=== PATIENT | female | born 1940 | race Caucasian/White ===

== ENCOUNTER 2019-08-27 13:41 | Outpatient (CLI) | payer MEDICARE, OTHER, SELFPAY ==
--- NOTE | ~2019-08-27 | XR_ITS ---
XR hip LT min 2V DATE: 08/27/2019 14:05 INDICATION: Left hip pain. No known injury. TECHNIQUE: AP and lateral views COMPARISON: None FINDINGS: No fracture or dislocation, avascular necrosis or bone destruction. There is enthesopathy o f the greater trochanter of the proximal left femur. No fracture, dislocation, avascular necrosis or bone destruction is detected. Normal alignment at the pubic symphysis and the visualized portions of the sacroiliac joints. IMPRESSION: No fracture or dislocation or bone destruction Reviewed, dictated and finalized at location B.
== END 2019-08-27 13:42 | disposition home or self-care (01) ==
LOC: CHSIMG 13:43
PROVIDERS: PCP Family Medicine; Visit Provider Family Medicine
DX: M25.552 Pain in left hip (principal)
CPT/HCPCS: 73502

== ENCOUNTER 2020-05-19 16:10 | Outpatient (CLI) | payer MEDICARE, OTHER, MEDICAID, SELFPAY ==
--- NOTE | ~2020-05-19 | XR_ITS ---
XR hip RT min 2V DATE: 05/19/2020 16:37 INDICATION: Chronic right hip pain TECHNIQUE: AP and lateral views COMPARISON: 01/26/2019 right hip FINDINGS: There is mild right hip osteoarthritis. No fracture or dislocation, avascular necrosis or bone destruction is evident. IMPRESSION: Mild right hip osteoarthritis; no significant change since 01/26/2019 Reviewed, dictated and finalized at location A. IMPRESSION: Mild right hip osteoarthritis; no significant change since 01/27/20 19
== END 2020-05-19 16:11 | disposition home or self-care (01) ==
LOC: CHSIMG 16:15
PROVIDERS: PCP Family Medicine; Visit Provider Family Medicine
DX: M25.551 Pain in right hip (principal)
CPT/HCPCS: 73502

== ENCOUNTER → 2020-07-28 13:17 | Outpatient (CLI) | payer MEDICARE, OTHER, SELFPAY ==
--- NOTE | ~2020-07-28 | DEXA_ITS ---
Bone Density Report Name: Trina Leiva Age: 79 Sex: Female Ethnicity: White Date of : 1940 Indication: postmenopausal; screening for osteoporosis; height loss; Referring Provider: NEGIN JOE Study: Bone densitometry was performed. Exam Date: July 28, 2020 Accession number: [id number] Bone Density: Region BMD T-score Z-score Classification AP Spine (L3, L4) 1.367 2.4 5.2 Normal Femoral Neck (Left) 0.854 0.0 2.3 Normal Total Hip (Left) 1.005 0.5 2.6 Normal Femoral Neck (Right) 0.824 -0.2 2.1 Normal Total Hip (Right) 0.918 -0.2 1.9 Normal Total Hip Mean 0.962 0.2 2.3 Normal World Health Organization criteria for BMD impression classify patients as: Normal (T-score at or above -1.0), Osteopenia (T-score between -1.0 and -2.5), or Osteoporosis (T-score at or below -2.5). 10-year Fracture Risk: FRAX not reported because: All T-scores for Spine Total, Hip Total, Femoral Neck at or above -1.0 Previous Exams: Region Exam Age BMD T-score BMD Change BMD Change Date g/cm2 vs Baseline vs Previous AP Spine(L3, L4) 07/28/2020 79 1.367 2.4 -0.069* -0.082* 04/15/2016 75 1.448 3.2 0.012 -0.158* 07/10/2013 72 1.607 4.6 0.170* 0.170* 04/08/2008 67 1.436 3.0 Total Hip(Left) 07/28/2020 79 1.005 0.5 0.044* -0.036* 04/15/2016 75 1.041 0.8 0.080* -0.005 07/10/2013 72 1.046 0.9 0.086* 0.086* 04/08/2008 67 0.961 0.2 Total Hip(Right) 07/28/2020 79 0.918 -0.2 -0.014 -0.033* 04/15/2016 75 0.952 0.1 0.019 -0.001 07/10/2013 72 0.953 0.1 0.020 0.020 04/08/2008 67 0.933 -0.1 *Denotes significance at 95% confidence level, LSC for AP Spine = 0.022 g/cm2, LSC for Total Hip = 0.027 g/cm2 Clinical Information Provided by Patient: Has used the following medications: Vitamin D, MTV Patient maximum height was 67 Menopause Age: 50 No regular weight bearing exercise Onset of menses at age 13 Number of children 2 Impression: The patient has normal bone mass. The BMD for the AP Spine(L3, L4) decreased, changing by -0.082 since the last DXA exam. The BMD for the Total Hip(Left) decreased, changing by -0.036 since the last DXA exam. The BMD for the Total Hip(Right) decreased, changing by -0.033 since the last DXA exam. Discussion: LASHELL
--- NOTE | ~2020-07-28 | MM_ITS ---
EXAMINATION: MM screening aayush BI w adam HISTORY: Screening mammogram TECHNIQUE: Craniocaudal and mediolateral oblique 3-D tomosynthesis images were obtained and synthetic 2-D images were generated. CAD analysis was submitted and interpreted. COMPARISON: 05/29/2018, 05/02/2017, 04/15/2016 bilateral digital screening mammogram examinations BREAST PARENCHYMAL COMPOSITION: There are scattered areas of fibroglandular density. FINDINGS: Scattered bilateral benign calcifications. Stable mild fibroglandular asymmetry. There is n o evidence of suspicious mass, calcification, or architectural distortion to suggest malignancy in ei ther breast. There has been no suspicious interval change. IMPRESSION: 1. No mammographic evidence of malignancy. 2. Recommend routine screening mammography in one year. BI-RADS Category 2: Benign finding(s). Reviewed, dictated and finalized at location A.
== END ==
PROVIDERS: PCP Family Medicine; Visit Provider Obstetrics & Gynecology Gynecology
DX: Z12.31 Encounter for screening mammogram for malignant neoplasm of breast (principal); Z78.0 Asymptomatic menopausal state
CPT/HCPCS: 77063; 77067; 77080

== ENCOUNTER → 2020-12-17 16:47 | Outpatient (CLI) | payer MEDICARE, MEDICAID, SELFPAY ==
--- NOTE | ~2020-12-17 | MR_ITS ---
EXAMINATION: MR lumbar spine wo con DATE: 12/17/2020 17:58 INDICATION: Low back pain. Lumbar spondylosis with radiculopathy. TECHNIQUE: Magnetic resonance imaging (MRI) of the lumbar spine was performed without intravenous con trast. Sequences included sagittal T2-weighted FSE, sagittal T2-weighted FS FSE, sagittal STIR FSE, s agittal T1-weighted FSE, and axial T2-weighted FSE. COMPARISON: Lumbar spine MRI 12/13/15 FINDINGS: There is 17 degrees dextroscoliosis of thoracolumbar spine. There is 3 mm retrolisthesis of L1 on L2. There is mild chronic height loss of T11 vertebral body. There are Schmorl's nodes at mult iple levels. There is severely decreased disc height from L1-L2 through L5-S1 with endplate remodelin g. There is interbody fusion at L3-L4. There is ligamentum flavum hypertrophy at the disc levels of l umbar spine. The distal spinal cord signal intensity is normal. The conus medullaris is at L1. The fo llowing disc levels are specifically discussed: L1-L2: The disc is bulging. There is severe bilateral facet joint osteoarthritis. There is mild right and moderate left neural foraminal stenosis. There is mild central canal stenosis. L2-L3: The disc is bulging and has an annular fissure. There is severe bilateral facet joint osteoart hritis. There is moderate bilateral neural foraminal stenosis. There is moderate central canal stenos is. L3-L4: The disc is bulging. There is severe left facet joint osteoarthritis. There is ankylosis of ri ght facet joint with moderate hypertrophy. There is mild bilateral neural foraminal stenosis. There i s mild central canal stenosis. L4-L5: The disc is bulging and has an annular fissure. There is mild bilateral facet joint osteoarthr itis. There is moderate right and mild left neural foraminal stenosis. There is mild central canal st enosis. L5-S1: The disc is bulging and has an annular fissure. There is moderate right and severe left facet joint osteoarthritis. There is moderate bilateral neural foraminal stenosis. There is mild central ca nal stenosis. IMPRESSION: 1. Severe lumbar spondylosis, stable from 12/13/2015. 2. Thoracolumbar dextroscoliosis. Reviewed, dictated and finalized at location A. S REPRESENTATIVE DOOR TO DOOR
== END ==
DX: M47.27 Other spondylosis with radiculopathy, lumbosacral region (principal)
CPT/HCPCS: 72148

== ENCOUNTER 2021-01-28 10:13 | Outpatient (CLI) | payer MEDICARE, MEDICAID, SELFPAY ==
--- NOTE | ~2021-01-28 | US_ITS ---
US abdomen complete EXAMINATION: US Abdomen Complete INDICATION: Elevated bilirubin PROCEDURE: Realtime High Resolution abdomen ultrasound. COMPARISON: No prior studies for comparison FINDINGS: There are gallstones. No gallbladder wall thickening or pericholecystic fluid. Common bile duct measures 2 mm. Liver echotexture is increased, consistent with fatty infiltration. Pancreas within normal limits. Pancreatic tail is obscured by bowel gas. Spleen is unremarkeable. Renal echotexture is within john l limits bilaterally without hydronephrosis, contour deforming mass or renal stone. Right kidney razia ures 9.8 cm. Left kidney measures 9.6 cm. Visualized aspects of the aorta and IVC are within normal limits. Portal vein is patent. No sonograph ic Ramirez's sign indicated by the technologist. IMPRESSION: 1: Cholelithiasis. 2: Hepatic steatosis. Reviewed, dictated and finalized at location A. ING MACHINE ASSEMBLER
== END 2021-01-28 10:14 | disposition home or self-care (01) ==
LOC: CHSIMG 10:14
PROVIDERS: PCP Family Medicine; Visit Provider Family Medicine
DX: R79.9 Abnormal finding of blood chemistry, unspecified (principal)
CPT/HCPCS: 76700

== ENCOUNTER 2021-01-29 09:48 | Outpatient (CLI) | payer MEDICARE, MEDICAID, OTHER, SELFPAY | END 2021-01-29 09:49 | disposition home or self-care (01) | LOC: CHSCARD 09:50 | PROVIDERS: PCP Family Medicine; Visit Provider Family Medicine | DX: R06.00 Dyspnea, unspecified (principal) | CPT/HCPCS: 94060; 94726; 94729 ==

== ENCOUNTER 2021-07-07 16:52 | Outpatient (RCR) | payer MEDICARE, MEDICAID, SELFPAY ==
--- NOTE | 2021-07-07 17:38 | PTOPEVAL ---
Thank you for referring Trina Leiva to [facility].? The patient is scheduled to be seen for therapy? ____x/week for ___ weeks. Please review, sign, date and return this plan of care KAREN. I agree with and certify that the following plan of care is medically necessary. Referring Physician Date Admitting Provider: Attending Provider: Inocente Garza MD Referring Provider: *PT Outpatient Evaluation Start: 07/07/21 16:58 Freq: Status: Active Protocol: Document 07/07/21 17:00 [facility] (Rec: 07/07/21 17:38 [facility] [id number]) Therapy Assessment Status Assessment Status Assessment Status Evaluation Outpatient Past Medical History Neurological History Hx Neurological Disorders No Significant History Cardiovascular History Hx Hypertension Yes Respiratory History Hx Respiratory Disorders No Significant History Gastrointestinal History Hx Gastrointestinal Disorders No Significant History Genitourinary History Hx Other Genitourinary Disorders Yes: incontinence Musculoskeletal History Hx Arthritis Yes Hx Back Pain Yes Hx Joint Replacement Yes: Left TKR 2009, Right TKR 2014 Hematological History Hx Hematological Disorders No Significant History Endocrine History Hx Endocrine Disorders No Significant History HEENT History Hx Cataracts Yes Integumentary History Hx Skin Disorders No Significant History Reproductive History Hx Other Reproductive Disorders Yes: D&C Psychosocial History Hx Anxiety Yes Pain History History of Any Previous or Ongoing No Significant History Instance of Pain Anesthesia History Hx Anesthesia Reactions No Significant History Evaluation Information Problem Diagnosis unsteady gait, lower back pain Subjective Information patient reports she is coming Query Text:As Reported By Patient/ to therapy for her balance and Family her back pain. she reports this year she has noticed deficits in her balance. she reports she has a cane at home , but her daughter tells her she is not using it correctly. she reports she has had lower back pain off and on for years, but currently it has been stuck painful and not relenting. she reports she is getting more hot when doing activities as she believes she has to work harder all the t
--- NOTE | 2021-10-05 16:49 | PCPTNOTE ---
Mrs. Leiva attended a total of 3 treatment sessions from 07/07/21 to 07/17/21. She has failed to return to the clinic and will be discharged from our care. Refer to last daily note for discharge status.
== END 2021-07-17 23:59 | disposition home or self-care (01) ==
LOC: CHSPT 16:52
PROVIDERS: PCP Family Medicine; Visit Provider Family Medicine
DX: R26.81 Unsteadiness on feet (principal)
CPT/HCPCS: 97110; 97161; 97530

== ENCOUNTER 2021-07-27 15:50 | Outpatient (CLI) | payer MEDICARE, OTHER, MEDICAID, SELFPAY ==
--- NOTE | ~2021-07-27 | XR_ITS ---
EXAMINATION: XR chest 2V DATE: 07/27/2021 16:05 INDICATION: Acute cough. Shortness of breath. TECHNIQUE: Frontal and lateral views of the chest were obtained. COMPARISON: CT abdomen and pelvis 03/09/2017 FINDINGS: The chest demonstrates clear lungs without pneumonia, pleural effusion, or pneumothorax. Th e heart size is normal. IMPRESSION: 1. No acute cardiopulmonary disease. Reviewed, dictated and finalized at location A.
== END 2021-07-27 15:51 | disposition home or self-care (01) ==
LOC: CHSIMG 15:53
PROVIDERS: PCP Family Medicine; Visit Provider Family Medicine
DX: R05.1 Acute cough (principal)
CPT/HCPCS: 71046

== ENCOUNTER 2021-10-14 11:06 | Day surgery (SDC) | payer MEDICARE, OTHER, MEDICAID, SELFPAY ==
[2021-09-30 09:53] VITALS: BMI 44.4
--- NOTE | 2021-10-14 11:27 | WPDHPUPDATE1 ---
History and Physical Update Update Date/Time: 10/14/21 11:27 History and Physical has been reviewed, including an updated exam of the patient. There are NO changes in the patient's condition. Risks, benefits, and alternatives have been discussed and questions answered. Patient agrees to proceed with procedure.
[2021-10-14] MEDS: OFLOXACIN 0.3% OPHTH SOLN 5 ML BTL 1 DROP AFFCTD EYE (11:35)
[2021-10-14] MEDS: TETRACAINE HCL 0.5% OPHTH SOLN 4 ML BTL 1 DROP AFFCTD EYE ×3 (11:35→11:45)
--- NOTE | 2021-10-14 11:35 | WPDANESEPPF ---
Anes - Initial Pre Proc Eval Procedure: Operation Date: 10/14/21 12:00 Proposed Procedures p Cataract Extraction with Lens Implant-Right Eye - Jose El MD Date/Time: 10/14/21 11:35 Surgeon: Jose El MD Pre Op Diagnosis: Cataract Right Eye Patient Data Age: 81 Gender: F Height: 1.65 m Weight: 121 kg Allergies Allergy/AdvReac Type Severity Reaction Status Date / Time No Known Allergies Allergy Verified 07/24/21 11:28 Home Medications Medication Instructions Recorded Confirmed Type atorvastatin 40 mg tablet 40 mg PO HS 09/05/20 09/30/21 History biotin 10,000 mcg capsule 10,000 mcg PO DAILY 09/05/20 09/30/21 History cholecalciferol (vitamin D3) 50 100 mcg PO DAILY 09/05/20 09/30/21 History mcg (2,000 unit) capsule cranberry concentrate-ascorbic 1 cap PO DAILY 09/05/20 09/30/21 History acid 4,200 mg-20 mg capsule desloratadine 5 mg tablet 5 mg PO DAILY 09/05/20 09/30/21 History doxazosin 4 mg tablet 8 mg PO BID 09/05/20 09/30/21 History escitalopram oxalate 20 mg tablet 20 mg PO DAILY 09/05/20 09/30/21 History hydrochlorothiazide 12.5 mg capsule 12.5 mg PO DAILY 09/05/20 09/30/21 History lisinopril 40 mg tablet 40 mg PO DAILY 09/05/20 09/30/21 History metoprolol succinate 100 mg 100 mg PO DAILY 09/05/20 09/30/21 History tablet,extended release 24 hr mirabegron 25 mg tablet,extended 25 mg PO HS 09/05/20 09/30/21 History release 24 hr (Myrbetriq) montelukast 10 mg tablet 10 mg PO DAILY 09/05/20 09/30/21 History vit C,E,zinc,copper-uiual5h 250 1 cap PO DAILY 09/05/20 09/30/21 History mg-lutein 5 mg-zeaxanthin 1 mg capsule (Ocuvite Adult 50 Plus) Patient hx anesthesia problems: none Family hx anesthesia problems: none Results Review: All pre-operative results and documents have been reviewed as part of the pre-operative evaluation. [facility] Past Medical History Medical History Anxiety Elevated bilirubin Hepatic steatosis HLD (hyperlipidemia) HTN (hypertension) Obese Osteoarthritis Surgical History Surgical History History of total bilateral knee replacement Family History Family History Other Family history of arthritis Family history of coronary artery disease Hypertension Social History Social History Smoking status: Never smoker Second hand tobacco smoke exposure: No Alcohol intake: never Substance use: never Living arrangements: alone Spiritual care concerns: No Anes - Eval Final PreProcedure Day of Procedure 10/14/21 11:35 Patient weight: morbidly obese Heart: regular rate and rhythm Lungs: clear to auscultation Airway: Mallampati scale class II Neurological: alert and oriented Last oral intake: >/= 8 hours ASA classification: III Emergent: no Anesthetic plan: proceed Anesthesia type and monitoring: monitored anesthesia care Results Review: All pre-operative results and documents have been reviewed as part of the pre-operative evaluation. Informed Consent: The patient's anesthetic plan and its attendant risks and benefits were discussed with the patient/family/POA. Questions were solicited and answers provided to the satisfaction of the patient/family/POA.
[2021-10-14 11:42] VITALS: BMI 44.2
[2021-10-14 11:44] VITALS: BP 195/85; PULSE 79; RESP 18; TEMP 36.6; O2SAT 97
[2021-10-14] MEDS: LIDOCAINE HCL 2% JELLY 5 ML TUBE 1 APPLIC AFFCTD EYE (12:29)
[2021-10-14] MEDS: LIDOCAINE HCL 1% PF INJ 5 ML VIAL 1 ML INTRAOCULA (12:50)
--- NOTE | 2021-10-14 12:57 | W.PM.PROC2 ---
Procedure Note - Detailed Date of Procedure 10/14/21 Pre-op Diagnosis Cataract Right Eye Post-op Diagnosis Same Procedure Performed Cataract Extraction (by Phacoemulsification) and lntraocular Lens Implant RIGHT eye Surgeon Jose El MD Description of Procedure The eye was anesthetized with topical 0.75% bupivacaine. After intravenous sedation and placement of monitors, the patient was prepped and draped in the usual sterile manner. A lid speculum was placed. A paracentesis was made, and preservative free 1% lidocaine was instilled in the anterior chamber. The anterior chamber was then filled with Viscoat viscoelastic. A meena keratome was used to create the wound. Continuous tear anterior capsulotomy was performed. The lens was hydro dissected before being removed with phacoemulsification. The remaining lenticular cortex was removed with aspiration. The capsular bag was polished and filled with viscoelastic material. An intraocular lens was chosen, inspected, irrigated and placed within the capsular bag where it was seen to be centered and stable. The viscoelastic material was aspirated. The wound was closed and found to be watertight. Ciloxan drops were placed in the eye. The speculum was removed. A Josue shield was applied. The patient tolerated the procedure well and left the operating room in satisfactory condition. Implants See chart Complications None Condition Stable Disposition Same day
[2021-10-14] MEDS: HOME MEDICATION 1 EACH AFFCTD EYE (13:15)
[2021-10-14] MEDS: NEOMYCIN/POLYMYXIN/DEXAMETH OP OINT 3.5 GM TUBE 1 APPLIC AFFCTD EYE (13:15)
[2021-10-14 13:20] VITALS: BP 187/81; PULSE 68; RESP 16; O2SAT 96
[2021-10-14] MEDS: acetaZOLAMIDE TAB 250 MG TABLET PO (13:27)
--- NOTE | 2021-10-14 13:42 | WPDANESPN ---
Anes - Prog Note Post-Op Date/Time: 10/14/21 13:42 Cardiovascular status: normal Respiratory status: normal Airway patency: baseline Mental status: baseline Post-Op hydration status: normal Vital Signs: Last Vital Signs Temp 36.6 C 10/14/21 11:44 Pulse 68 10/14/21 13:20 Resp 16 10/14/21 13:20 BP 187/81 H 10/14/21 13:20 Pulse Ox 96 10/14/21 13:20 O2 Del Method Room Air 10/14/21 13:20 Pain Score (VAS): 0 Patient Feedback: Patient satisfied with anesthetic care.
== END 2021-10-14 13:45 | disposition home or self-care (01) ==
PROVIDERS: Visit Provider Student in an Organized Health Care Education/Training Program
PROC: (CPT 66983; principal; 2021-10-14 12:00)
DX: H25.11 Age-related nuclear cataract, right eye (principal)
CPT/HCPCS: 66984

== ENCOUNTER → 2021-11-27 13:28 | Outpatient (CLI) | payer MEDICARE, OTHER, MEDICAID, SELFPAY ==
--- NOTE | ~2021-11-27 | MM_ITS ---
EXAMINATION: MM screening aayush BI w adam HISTORY: Screening TECHNIQUE: Craniocaudal and mediolateral oblique 3-D tomosynthesis images were obtained and synthetic 2-D images were generated. CAD analysis was submitted and interpreted. COMPARISON: Comparison to multiple prior studies sequentially, with oldest reviewed study dated 03/28. BREAST PARENCHYMAL COMPOSITION: There are scattered areas of fibroglandular density. FINDINGS: Bilateral breast asymmetries are stable. There is no evidence of suspicious mass, calcifica tion, or architectural distortion to suggest malignancy in either breast. There has been no suspiciou s interval change. IMPRESSION: 1. No mammographic evidence of malignancy. 2. Recommend routine screening mammography in one year. BI-RADS Category 1: Negative Reviewed, dictated and finalized at location A.
== END ==
PROVIDERS: PCP Family Medicine; Visit Provider Obstetrics & Gynecology Gynecology
DX: Z12.31 Encounter for screening mammogram for malignant neoplasm of breast (principal)
CPT/HCPCS: 77063; 77067

== ENCOUNTER 2022-07-30 14:26 | Outpatient (CLI) | payer MEDICARE, OTHER, MEDICAID, SELFPAY ==
--- NOTE | ~2022-07-30 | XR_ITS ---
EXAM: XR lumbar spine 2-3V DATE: 07/30/2022 14:43 HISTORY: spinal stenosis, lumbar region with neurogenic claudication . COMPARISON: 12/08/2015. FINDINGS: Osteopenia. Aortic calcifications without evident aneurysm. Moderate lumbar scoliosis. 5 n onrib-bearing lumbar-type vertebral bodies. Pedicles intact. Straightening of the lumbar lordosis. Ve rtebral body heights preserved. Multilevel disc space narrowing and marginal osteophytosis, with larg e bridging osteophytes at multiple levels. Vacuum disc phenomenon at L1-2 and L2-3. Moderate-severe f acet hypertrophy and sclerosis. Interbody fusion at L3-4 and L4-5. No fracture or dislocation. IMPRESSION: Multilevel severe degenerative disc disease. Multilevel severe facet arthropathy. Reviewed, dictated and finalized at location K. IMPRESSION: Multilevel severe degenerative disc disease. Multilevel severe face t arthropathy.
== END 2022-07-30 14:27 | disposition home or self-care (01) ==
LOC: CHSLAB 14:30
PROVIDERS: PCP Family Medicine; Visit Provider Family Medicine
DX: M48.062 Spinal stenosis, lumbar region with neurogenic claudication (principal); M51.36 Other intervertebral disc degeneration, lumbar region
CPT/HCPCS: 72100

== ENCOUNTER → 2022-08-23 12:43 | Outpatient (CLI) | payer MEDICARE, OTHER, MEDICAID, SELFPAY ==
--- NOTE | ~2022-08-23 | MR_ITS ---
EXAMINATION: MR lumbar spine wo con DATE: 08/23/2022 13:27 INDICATION: Spinal stenosis. Low back pain. TECHNIQUE: Magnetic resonance imaging (MRI) of the lumbar spine was performed without intravenous con trast. Sequences included sagittal T2-weighted FSE, sagittal T2-weighted FS FSE, sagittal T1-weighted FSE, and axial T2-weighted FSE. COMPARISON: Lumbar spine MRI 12/17/2020, radiographs 07/30/2022 FINDINGS: There is 14 degrees dextroscoliosis of thoracolumbar spine. There is 3 mm retrolisthesis of L1 on L2. Vertebral body heights are normal. There is severely decreased disc height from L1-L2 thro ugh L5-S1 with interbody fusion at L3-L4. The distal spinal cord signal intensity is normal. The conu s medullaris is at L1. The following disc levels are specifically discussed: L1-L2: The disc is bulging. There is severe bilateral facet joint osteoarthritis. There is mild right and moderate left neural foraminal stenosis. There is mild central canal stenosis. L2-L3: The disc is bulging with superimposed right subarticular zone extrusion. There is severe bilat eral facet joint osteoarthritis. There is mild right and moderate left neural foraminal stenosis. The re is mild central canal stenosis. There is severe stenosis of right lateral recess. L3-L4: The disc is bulging. There is severe left facet joint osteoarthritis. There is ankylosis of ri ght facet joint with moderate hypertrophy. There is mild bilateral neural foraminal stenosis. There i s mild central canal stenosis. L4-L5: The disc is bulging and has an annular fissure. There is severe bilateral facet joint osteoart hritis. There is mild bilateral neural foraminal stenosis. There is mild central canal stenosis. L5-S1: The disc is bulging with superimposed right foraminal zone extrusion. There is moderate right and severe left facet joint osteoarthritis. There is moderate right and mild left neural foraminal st enosis. There is mild central canal stenosis. IMPRESSION: 1. Severe lumbar spondylosis, stable from 12/17/2020. 2. Thoracolumbar dextroscoliosis. Reviewed, dictated and finalized at location A.
== END ==
PROVIDERS: PCP Family Medicine; Visit Provider Family Medicine
DX: M48.00 Spinal stenosis, site unspecified (principal); M47.896 Other spondylosis, lumbar region
CPT/HCPCS: 72148

== ENCOUNTER 2022-11-08 14:26 | Outpatient (CLI) | payer MEDICARE, OTHER, MEDICAID, SELFPAY ==
--- NOTE | ~2022-11-08 | XR_ITS ---
XR shoulder RT min 2V DATE: 11/08/2022 15:01 INDICATION: Generalized right shoulder pain. Fall one month ago. TECHNIQUE: 4 views of right shoulder COMPARISON: March 19, 2013 right shoulder FINDINGS: There is diffuse osteopenia. Cervical spondylosis. Thoracic scoliosis and degenerative spurring. There is joint space narrowing and spurring at the glenohumeral joint consistent with prominent gleno humeral osteoarthritis. There is degenerative spurring at the acromioclavicular joint. The discs diminished space between the humeral head and undersurface of the acromion process cyst wit h rotator cuff tear and/or atrophy. No fracture or dislocation, periosteal reaction or bone destruction is detected. IMPRESSION: Severe glenohumeral osteoarthritis Degenerative spurring at the right acromioclavicular joint Rotator cuff tear and/or atrophy Osteopenia Cervical spondylosis. Thoracic scoliosis and degenerative spurring Reviewed, dictated and finalized at location B.
== END 2022-11-08 14:27 | disposition home or self-care (01) ==
LOC: CHSIMG 14:29
PROVIDERS: PCP Family Medicine; Visit Provider Family Medicine
DX: M25.511 Pain in right shoulder (principal); M19.011 Primary osteoarthritis, right shoulder; M77.8 Other enthesopathies, not elsewhere classified; M85.89 Other specified disorders of bone density and structure, multiple sites; M43.02 Spondylolysis, cervical region; M41.84 Other forms of scoliosis, thoracic region
CPT/HCPCS: 73030

== ENCOUNTER 2022-12-01 18:28 | Outpatient (RCR) | payer MEDICARE, OTHER, MEDICAID, SELFPAY ==
--- NOTE | 2022-12-01 14:09 | OPREHPOC ---
Outpatient Therapy Plan of Care This is a Multidisciplinary Plan of Care that may contain components documented by all disciplines (PT, OT, and ST.) PT Problem 1 PT Problem #1 Knowledge Deficit PT Goal 1 Goal 1. independent and compliant with HEP Target Visit 4 PT Problem 2 PT Problem #2 Impaired Range of Motion PT Goal 1 Goal 1. improve active R shoulder flexion to 145 degrees or better 2. improve active R shoulder abduction to 120 degrees or better Target Visit 9 PT Problem 3 PT Problem #3 Pain PT Goal 1 Goal 1. decrease pain at worst to 3/10 or less in the R shoulder Target Visit 9 PT Problem 4 PT Problem #4 Impaired Strength PT Goal 1 Goal 1. improve R shoulder strength to 4/5 or better overall Target Visit 9 PT Problem 5 PT Problem #5 Impaired Functional Mobil PT Goal 1 Goal 1. improve R shoulder functional reach to the bra line behind back 2. improve R shoulder functional reach to the shirt collar behind head 3. patient to lift 10lbs from waist to shoulder level shelf Target Visit 9
--- NOTE | 2022-12-01 14:09 | PTOPEVAL1 ---
Assessment and note entered by JT File, PT Evaluation Information Assessment Status Evaluation Diagnosis R shoulder pain Onset 11/19/22 Subjective Information patient reports she fell at home and injured the R shoulder. she reports she had xrays of the shoulder with no fractures found. she reports it began hurting again a few weeks ago. she reports she has not had an MRI. she reports she has increased pain in the R shoulder with pulling/ pushing use of the R arm. she reports the pain subsides with rest. she reports she has difficulty lifting/raising the arm to her side. she reports she has difficulty writing with the R hand. she reports she sleeps fine. Reported Pain Level Pain Score 2: Self Report Assessment PT Clinical Summary mrs. pinon is an 82 yo woman who presents to skilled PT services for evaluation and treatment of R shoulder pain. she presents today with R shoulder weakness, decreased rom, and pain indicative of a R RTC pathology. she more than likely has a partial tear or RTC tendonitis. she would benefit from continued skilled PT to address her objective/functional deficits and return to her prior level functional activity performance/ quality of life. Plan of Care Interventions Electrical Stimulation,Hot Pack/Cold Pack,Manual Therapy,Neuro Re-education,Patient/Caregiver Educati,Therapeutic Activities,Therapeutic Exercise PT Services Indicated Yes Treatment Frequency and 3x weekly for 9 visits Duration These treatments will address the objective and functional deficits as defined above. The patient will be advanced safely and appropriately in order for the patient to progress towards his/her prior level of function. Additional exercises will be introduced and as well as a comprehensive home exercise program upon discharge, if needed, ?to ensure carryover of functional gains achieved in the clinic. This treatment plan has been reviewed and agreement upon by the patient.
== END 2022-12-20 16:42 | disposition home or self-care (01) ==
LOC: CHSPT 18:28
PROVIDERS: PCP Family Medicine; Visit Provider Family Medicine
DX: M25.511 Pain in right shoulder (principal)
CPT/HCPCS: 97014; 97110; 97161; G0283

== ENCOUNTER 2023-10-24 14:33 | Outpatient (CLI) | payer MEDICARE, OTHER, SELFPAY ==
--- NOTE | 2023-10-24 14:38 | ECG_ITS ---
Test Date: 2023-10-24 14:50:07 Measurements Intervals [place] Rate: 53 P: 69 [place]: 181 QRS: -37 QRSD: 161 T: 111 QT: 495 QTc: 468 Interpretive Statements SINUS BRADYCARDIA WITH OCCASIONAL SUPRAVENTRICULAR PREMATURE COMPLEXES LEFT AXIS DEVIATION LEFT BUNDLE BRANCH BLOCK BASELINE WANDER- I, II, III, V1-V3 ABNORMAL ECG No previous ECG available for comparison Electronically Signed On 10-24-2023 14:56:26 CDT by Darrin Rose D.O.
== END 2023-10-24 14:34 | disposition home or self-care (01) ==
PROVIDERS: PCP Family Medicine; Visit Provider Internal Medicine Cardiovascular Disease
DX: I44.7 Left bundle-branch block, unspecified (principal); R00.1 Bradycardia, unspecified; R94.31 Abnormal electrocardiogram [ECG] [EKG]
CPT/HCPCS: 93005

== ENCOUNTER 2023-10-31 08:14 | Outpatient (CLI) | payer MEDICARE, OTHER, MEDICAID, SELFPAY ==
--- NOTE | 2023-10-31 08:22 | EST_ITS ---
Patient Info Name: Trina Leiva Age: 83 years : 1940 Gender: Female Ht: 65 in Wt: 270 lbs BSA: 2.44 m2 HR: 54 bpm BP: 135 / 48 mmHg Heart Rhythm: Left Bundle Branch Block, Sinus Arrhythmia, Bradycardia Technical Quality: Good Exam Date: 10/31/2023 9:30 AM Exam Location: Echo Lab Patient Status: Outpatient Admit Date: 10/31/2023 Staff Ordering Physician: Darrin Rose DO Attending Provider: Darrin Rose DO Exam Type: CA stress carmella w NM Study Info A regadenoson stress test was performed. History/Risk Factors Hypertension: Yes Dyslipidemia: Yes Obesity: Yes Summary 1. 1. Inconclusive lexiscan stress test for ischemic ST changes by ECG criteria due to baseline LBBB. 2. 2. Hypertensive response to lexiscan. 3. 3. Nuclear scan to follow and will be reported separately. Please correlate with it. Protocol: LEXISCAN Stress ECG Details Stage: REST Duration (min): 1 min : 50 sec HR (bpm): 52 SBP (mmHg): 135 DBP (mmHg): 48 Stage: REST Duration (min): 12 min : 48 sec HR (bpm): 48 SBP (mmHg): 135 DBP (mmHg): 48 Stage: STAGE 1 Duration (min): 0 min : 55 sec HR (bpm): 55 SBP (mmHg): 135 DBP (mmHg): 48 Stage: RECOVERY Duration (min): 0 min : 4 sec HR (bpm): 56 SBP (mmHg): 135 DBP (mmHg): 48 Stage: RECOVERY Duration (min): 1 min : 4 sec HR (bpm): 64 SBP (mmHg): 135 DBP (mmHg): 48 Stage: RECOVERY Duration (min): 2 min : 4 sec HR (bpm): 63 SBP (mmHg): 217 DBP (mmHg): 54 Stage: RECOVERY Duration (min): 3 min : 4 sec HR (bpm): 61 SBP (mmHg): 217 DBP (mmHg): 54 Stage: RECOVERY Duration (min): 4 min : 4 sec HR (bpm): 63 SBP (mmHg): 120 DBP (mmHg): 57 Stage: RECOVERY Duration (min): 5 min : 4 sec HR (bpm): 61 SBP (mmHg): 120 DBP (mmHg): 57 Stage: RECOVERY Duration (min): 5 min : 23 sec HR (bpm): 63 SBP (mmHg): 120 DBP (mmHg): 57 Rest HR: 48 bpm Peak HR: 65 bpm Rest Sys BP: 135 mmHg Peak Sys BP: 217 mmHg Max Pred HR: 137 bpm % Max Pred HR: 47 % Target HR: 116 bpm Max RPP: 14,105 bpm*mmHg Termination Reason: Completed Protocol Cardiac Symptoms: None Total Time: 0 min : 55 sec Rest Thompson BP: 48 mmHg Peak Thompson BP: 54 mmHg Total Dose: 0.4 mg Resting ECG Sinus bradycardia with sinus arrhythmia and LBBB. Stress ECG No abnormal ST/T wave changes. Arrhythmias None. Report Signatures
--- NOTE | 2023-10-31 14:07 | WPDCARIOSTRE ---
Nuclear Stress Test INDICATIONS Indications: DIAZ PROCEDURE Procedure Performed: Myocardial Perf Spect-Multi Procedure: Patient underwent a lexiscan stress test and immediately was injected with 33.9 mCi of cardiolyte. Multiple tomographic images were obtained. These are of good quality. There is evidence of a moderate size, moderate severity anteroseptal perfusion defect with stress imaging. A separate resting images were obtained after patient was injected with 10.8 mCi of cardiolyte. Multiple tomographic images were obtained. These are of good quality. There is evidence of a moderate size, moderate severity anteroseptal perfusion defect with rest imaging. CONCLUSION Conclusion: 1. Myocardial perfusion imaging demonstrating a fixed moderate size anteroseptal perfusion defect suggestive of breast attenuation artifact. 2. No evidence of reversible ischemia. 3. Left ventriculogram demonstrates normal measured ejection fraction of 63% with no wall motion abnormalities. 4. TID score 1.0 is normal.
== END 2023-10-31 08:15 | disposition home or self-care (01) ==
LOC: CHSIMG 08:17
PROVIDERS: PCP Family Medicine; Visit Provider Internal Medicine Cardiovascular Disease
DX: R06.09 Other forms of dyspnea (principal)
CPT/HCPCS: 78452; 93017; A9502; J2785

== ENCOUNTER 2024-05-22 13:38 | Outpatient (CLI) | payer MEDICARE, OTHER, MEDICAID, SELFPAY ==
--- NOTE | 2024-05-22 13:48 | ECHO_ITS ---
Patient Info Name: Trina Leiva Age: 83 years : 1940 Gender: Female Ht: 65 in Wt: 270 lbs BSA: 2.44 m2 HR: 57 bpm BP: 159 / 56 mmHg Heart Rhythm: Sinus Arrhythmia Technical Quality: Fair Exam Date: 05/22/2024 2:25 PM Exam Location: Echo Lab Patient Status: Outpatient Admit Date: 05/22/2024 Staff Ordering Physician: Darrin Rose DO Mannequin Wig Maker: Mimi Box RDCS Attending Provider: Darrin Rose DO Exam Type: CA echo dop color flow Study Info Complete two-dimensional, color flow and Doppler transthoracic echocardiogram is performed. History/Risk Factors Hypertension: Yes Dyslipidemia: Yes Obesity: Yes Summary 1. Complete two-dimensional, color flow and Doppler transthoracic echocardiogram is performed. 2. Technically suboptimal study due to poor sonographic images. 3. Left ventricular chamber dimension is normal. 4. Left ventricular systolic function is normal, estimated at 60-65%. 5. There is moderate concentric increased left ventricular wall thickness. 6. The left ventricular diastolic function is grade I diastolic dysfunction. 7. E/e' 13 is mildly elevated. 8. Left atrial chamber dimension is mildly enlarged. 9. Right atrial chamber dimension is mildly enlarged. 10. The aortic valve is not well visualized. Cannot determine number of aortic valve leaflets. 11. There is moderate aortic valve sclerosis. 12. There is mild aortic valve stenosis with a peak velocity of 279.11 cm/s, mean gradient of 17 mmHg, and aortic valve area of 2.02 cm2. 13. The mitral valve has moderately calcified annulus. 14. There is trace tricuspid valve regurgitation. 15. Mild pulmonary hypertension, estimated pulmonary arterial systolic pressure is 41 mmHg. Left Ventricle E/e' 13 is mildly elevated. Left ventricular chamber dimension is normal. Left ventricular systolic function is normal, estimated at 60-65%. There is moderate concentric increased left ventricular wall thickness. The left ventricular diastolic function is grade I diastolic dysfunction. Technically suboptimal study due to poor sonographic images. Right Ventricle Right ventricular systolic function is normal and with normal TAPSE 2.8 cm. Right ventricular chamber dimension is normal. Left Atria Left atrial chamber dimension is mildly enlarged. Right Atria Right atrial chamber dimension is mildly enlarged. Aortic Valve The aortic valve is not well visualized. Cannot determine number of aortic valve leaflets. There is moderate aortic valve sclerosis. There is mild aortic valve stenosis with a peak velocity of 279.11 cm/s, mean gradient of 17 mmHg, and aortic valve area of 2.02 cm2. There is no aortic valve regurgitation. Pulmonic Valve There is no pulmonic regurgitation. Mitral Valve The mitral valve has moderately calcified annulus. There is no mitral valve stenosis. There is no mitral valve regurgitation. Tricuspid Valve There is trace tricuspid valve regurgitation. Mild pulmonary hypertension, estimated pulmonary arterial systolic pressure is 41 mmHg. Pericardium/Pleural There is no pericardial effusion. Inferior Vena Cava Normal inferior vena cava with >50% collapse upon inspiration consistent with normal right atrial pressure, 5 mmHg. Aorta The aortic root size at the sinus of Valsalva is normal. Left Ventricular Outflow Tract Name Value Normal LVOT 2D LVOT Diameter 2.08 cm LVOT Doppler LVOT Peak Velocity 151.80 cm/s LVOT Peak Gradient 9 mmHg LVOT Mean Gradient 5 mmHg LVOT VTI 38.35 cm LVOT VTI/AV VTI Ratio 0.59 LVOT Stroke Volume 130.50 ml LVOT CO 6.69 l/min LVOT CI 2.75 L/min/m2 Pulmonic Valve Name Value Normal RVOT Doppler RVOT Peak Gradient 3 mmHg PV Doppler PV Peak Velocity 126.21 cm/s PV Peak Gradient 6 mmHg Mitral Valve Name Value Normal MV Doppler MV Decel Dickinson 233.29 cm/s2 MV PHT 0 s MV Area (PHT) 2.36 cm2 4.00-5.00 MV Diastolic Function MV E Peak Velocity 74.94 cm/s MV A Peak Velocity 103.37 cm/s MV E/A 0.72 MV Decel Time 0 s MV Annular TDI MV Septal e' Velocity 4.35 cm/s >=8.00 MV E/e' (Septal) 17.24 <=8.00 MV Lateral e' Velocity 6.38 cm/s >=10.00 MV E/e' (Lateral) 11.74 <=8.00 MV e' Average 5.36 MV E/e' (Average) 14.49 Tricuspid Valve Name Value Normal TV Regurgitation Doppler TR Peak Velocity 301.35 cm/s TR Peak Gradient 34 mmHg Estimated PAP/RSVP RA Pressure 5 mmHg <=5 PA Systolic Pressure 41 mmHg <36 RV Systolic Pressure 41 mmHg <36 TV Annular TDI TV Lateral Lori s' Velocity 8.51 cm/s 9.50-18.70 Aortic Valve Name Value Normal AV Doppler AV Peak Velocity 279.11 cm/s AV Peak Gradient 31 mmHg AV Mean Gradient 17 mmHg AV VTI 64.74 cm AV Area (Cont Eq VTI) 2.02 cm2 >=3.00 AV Area (Cont Eq Vish) 1.85 cm2 AV V1/V2 Ratio 0.54 AV Regurgitation 2D LVOT Area 3.40 cm2 Ventricles Name Value Normal LV Dimensions 2D/MM IVS Diastolic Thickness (2D) 1.44 cm 0.60-1.00 LVID Diastole (2D) 4.12 cm 3.80-5.20 LVIW Diastolic Thickness (2D) 1.37 cm 0.60-0.90 LVID Systole (2D) 2.81 cm 2.20-3.50 LVOT Diameter 2.08 cm LV Mass (2D Cubed) 219.04 g 67.00-162.00 LV Mass Index (2D Cubed) 0.01 g/cm2 0.00-0.01 Relative Wall Thickness (2D) 0.66 LV Fractional Shortening/Ejection Fraction 2D/MM LV Fractional Shortening (2D) 32 % 27-45 LV EF (2D Teicholz) 60 % 54-74 LV Diastolic Volume (4C MOD) 119.86 ml LV EF (4C MOD) 60 % LV Diastolic Volume (2C MOD) 106.55 ml LV EF (2C MOD) 65 % LV Diastolic Volume (BP MOD) 115.32 ml 46.00-106.00 LV Diastolic Volume Index (BP MOD) 0.05 l/m2 0.03-0.06 LV Systolic Volume (BP MOD) 44.96 ml 14.00-42.00 LV Systolic Volume Index (BP MOD) 0.02 l/m2 0.01-0.02 LV EF (BP MOD) 61 % 54-74 LV Diastolic Length (4C) 8.50 cm LV Systolic Length (4C) 7.12 cm LV Stroke Volume (4C MOD) 71.70 ml Atria Name Value Normal LA Dimensions LA Volume (4C A-L) 91.28 ml LA Volume (BP A-L) 80.46 ml RA Dimensions RA Area (4C) 21.11 cm2 <=18.00 Report Signatures Y
--- OUTSIDE RECORDS SUMMARY | 2024-05-22 14:40 | XMS_ITS | Encounter Summary ---
Author Organization [facility] Health Address [address] [place] [address] Care Team Providers Care Family Life Counselor Name Role Phone Dixon Barth MD Unavailable [phone] Inocente Garza MD Primary Care Provider [phone] Encounter Details Date Type Department Care Team (Late st Contact Info) Description 04/18/2019 Lab Requisition [facility] [address] [facility] [place] [id number] Yasir Ospina MD [address] [place] [address] Social History Tobacco Use Types Packs/Day Years Used Date Smoking Tobacco: Never Smokeless Tobacco: Never Alcohol Use Standard Drinks/Week Comments No 0 (1 standard drink = 0.6 oz pur e alcohol) rare Comments No Sex and Gender Information Value Date Recorded Sex Assigned at Not on file Legal Sex Female 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 Answer Date of Assessment Author No 04/25/2014 8:23 AM PACHECOT Emerson Bernardo RN * Is person blind or have serious difficulty seeing? Answer Date of Assessment Author No 04/25/2014 8:23 AM PACHECOT Emerson Bernardo RN * Does person have serious difficulty walking/climbing stairs? Answer Date of Assessment Author Yes 04/25/2014 8:23 AM PACHECOT Emerson Bernardo RN * Does person have difficulty dressing/bathing? Answer Date of Assessment Author No 04/25/2014 8:23 AM CDT Emerson Bernardo RN * Does person have difficulty doing errands alone? Answer Date of Assessment Author No 04/25/2014 8:23 AM CDT Emerson Bernardo RN documented as of this encounter Mental Status * Does person have difficulty concentrating/remembering/making decisions? Answer Entry Date Author No 04/25/2014 8:23 AM CDT Emerson Bernardo RN documented in this encounter Plan of Treatment Not on file documented as of this encounter Procedures Procedure Name Priority Date/Time Associated Diagnosis Comments DERMATOPATHOLOGY Routine 04/16/2019 12:0 0 AM CDT documented in this encounter Results * DERMATOPATHOLOGY (04/16/2019 12:00 AM CDT) Case Report Dermatopathology Report Case: [id number] Authorizing Provider: Yasir Ospina MD Collected: 04/16/2019 12:00 AM Ordering Location: [facility] Lab Received: 04/18/2019 09:16 AM Pathologist: Sunny Rosas MD Specimen: Skin, right calf 0 2:44 PM CDT DERMATOPATHOLOGY LABORATORY Final Diagnosis Specimen A. 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 Path # [id number]. 0 2:44 PM CDT DERMATOPATHOLOGY LABORATORY Gross Description Specimen A: Received is one formalin filled container labeled with the patient's name and designated right calf. The specimen consists of a shave biopsy measuring 0x6x7uo. Jar 0. 0 2:44 PM CDT DERMATOPATHOLOGY LABORATORY Microscopic Description Specimen A. SKIN, right calf: Attached to the undersurface of the epidermis, there are small aggregates of basaloid cells with a high nuclear to cytoplasmic ratio and peripheral palisading. 0 2:44 PM CDT DERMATOPATHOLOGY LABORATORY Disclaimer An external and internal positive and negative controls are appropriate for the histochemical, immunohistochemical and immunofluorescence stain(s) in this case (if any), except where stated explicitly. The performance characteristics of the stain(s) cited in this report were developed and its performance characteristic determined by the Dermatopathology Laboratory at [facility], directed by Dr. Reina Rosas. These tests need not be, and therefore are not, approved by the [place] Food and Drug Administration. The tests are used for clinical purposes. Billing Codes Specimen Charges Stain Charges 34721 1 0 2:44 PM CDT DERMATOPATHOLOGY LABORATORY Embedded Images 0 2:44 PM CDT DERMATOPATHOLOGY LABORATORY Pathology/Cytolog y TISSUE SPECIMEN FROM SKIN / Unknown 04/16/2019 04/18/2019 9:16 AM CDT Yasir Ospina MD LAB - PATHOLOGY/CYTOLOGY ORDER CYRIL Final Result DERMATOPATHOLOGY LABORATORY [facility] - Department of Dermatology [address] [place] [address] 5th Floor Lab [address] [phone] documented in this encounter Visit Diagnoses Not on filedocumented in this encounter Care Teams Family Life Counselor Relationship Specialty Start Date End Date Inocente Garza MD [address] [place] [phone] PCP - General Family Medicine 06/22/11 Dixon Barth MD Orthopedic Surgery 06/22/11 documented as of this encounter
--- OUTSIDE RECORDS SUMMARY | 2024-05-22 14:40 | XMS_ITS | Encounter Summary ---
Author Organization [facility] Health Address [address] [facility] [place] [address] Care Team Providers Care Electric Meter Reader Name Role Phone Dixon Barth MD Unavailable [phone] Inocente Garza MD Primary Care Provider [phone] Encounter Details Date Type Department Care Team (Late st Contact Info) Description 07/23/2019 Lab Requisition [facility] [address] [facility] [place] [phone] Yasir Ospina MD [address] [place] [address] Social History Tobacco Use Types Packs/Day Years Used Date Smoking Tobacco: Never Smokeless Tobacco: Never Alcohol Use Standard Drinks/Week Comments No 0 (1 standard drink = 0.6 oz pur e alcohol) rare Comments No Sex and Gender Information Value Date Recorded Sex Assigned at Not on file 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 Lab Received: 07/23/2019 07:30 AM Pathologist: Rupinder Man MD Specimen: Skin, left supra clavicular 0 1:43 PM CDT DERMATOPATHOLOGY LABORATORY Final Diagnosis Specimen A. SKIN, left supra clavicular: SQUAMOUS CELL CARCINOMA IN SITU, VERRUCOUS-HYPERTROP HIC TYPE, PRESENT AT THE BASE OF THE SPECIMEN (D04.5) (see microscopic description and comment) 0 1:43 PM CDT DERMATOPATHOLOGY LABORATORY Clinical History BCCA vs SCCA. Path # [id number]. 0 1:43 PM CDT DERMATOPATHOLOGY LABORATORY Gross Description Specimen A: Received is one formalin filled container labeled with the patient's name and designated left supra clavicular. The specimen consists of a shave biopsy measuring [id number]. Jar 0. 0 1:43 PM CDT DERMATOPATHOLOGY LABORATORY Microscopic Description Specimen A. SKIN, left supra clavicular: The epidermis is acanthotic and shows full thickness disorderly maturation of keratinocytes, mitoses at different levels, and dyskeratotic cells. There is overlying parakeratosis and hyperkeratosis. The lesion extends to the base of the biopsy. COMMENT: An invasive squamous cell carcinoma cannot be ruled out. 0 1:43 PM CDT DERMATOPATHOLOGY LABORATORY Disclaimer An external and internal positive and negative controls are appropriate for the histochemical, immunohistochemical and immunofluorescence stain(s) in this case (if any), except where stated explicitly. The performance characteristics of the stain(s) cited in this report were developed and its performance characteristic determined by the Dermatopathology Laboratory at [facility], directed by Dr. Reina Rosas. These tests need not be, and therefore are not, approved by the [place] Food and Drug Administration. The tests are used for clinical purposes. Billing Codes Specimen Charges Stain Charges 07878 1 0 1:43 PM CDT DERMATOPATHOLOGY LABORATORY Embedded Images 0 1:43 PM CDT DERMATOPATHOLOGY LABORATORY Pathology/Cytolog y TISSUE SPECIMEN FROM SKIN / Unknown 07/19/2019 07/23/2019 7:30 AM CDT us Yasir Ospina MD LAB - PATHOLOGY/CYTOLOGY ORDER CYRIL Final Result DERMATOPATHOLOGY LABORATORY [facility] - Department of Dermatology [facility]/[address] [phone] documented in this encounter Visit Diagnoses Not on filedocumented in this encounter Care Teams Electric Meter Reader Relationship Specialty Start Date End Date Inocente Garza MD [address] [place] [phone] PCP - General Family Medicine 06/22/11 Dixon Barth MD Orthopedic Surgery 06/22/11 documented as of this encounter
--- OUTSIDE RECORDS SUMMARY | 2024-05-22 14:40 | XMS_ITS | Encounter Summary ---
Author Organization [facility] Health Address [address] [place] [address] Care Team Providers Care Job Developer Name Role Phone Dixon Barth MD Unavailable [phone] Inocente Garza MD Primary Care Provider [phone] Encounter Details Date Type Department Care Team (Late st Contact Info) Description 08/24/2019 Lab Requisition [facility] [address] [facility] [place] [phone] Yasir Ospina MD [address] [place] [address] Social History Tobacco Use Types Packs/Day Years Used Date Smoking Tobacco: Never Smokeless Tobacco: Never Alcohol Use Standard Drinks/Week Comments No 0 (1 standard drink = 0.6 oz pur e alcohol) rare Comments No Sex and Gender Information Value Date Recorded Sex Assigned at Not on file 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 Path# [id number]. Check margins 0 3:06 PM CDT DERMATOPATHOLOGY LABORATORY Gross Description Specimen A: Received is one formalin filled container labeled with the patient's name and designated left supra clavicular. The specimen consists of a non-oriented ellipse of skin measuring 28g70y6 mm. The epidermal surface is unremarkable. The margin is inked green. The 12 o'clock and 6 o'clock tips are submitted in cassette 1. The remainder of the ellipse is serially sectioned and submitted in cassette 2-4. Jar 0. 0 3:06 PM CDT DERMATOPATHOLOGY LABORATORY Microscopic Description Specimen A. SKIN, left supra clavicular: The epidermis shows parakeratosis, full thickness disorderly maturation of keratinocytes, mitoses at different levels, and dyskeratotic cells. This lesion is not present at the margin of the specimen. There are fibroblasts and collagen bundles oriented parallel to the skin surface with elongated blood vessels, some of which are oriented perpendicular to the skin surface. In block A3, an incidental focus of hyperkeratosis alternating with parakeratosis is seen. There is epidermal hyperplasia with disorderly maturation of keratinocytes with nuclear pleomorphism confined to the lower half of the epidermis. This lesion is present at the margin of the specimen. 0 3:06 PM CDT DERMATOPATHOLOGY LABORATORY Disclaimer An external and internal positive and negative controls are appropriate for the histochemical, immunohistochemical and immunofluorescence stain(s) in this case (if any), except where stated explicitly. The performance characteristics of the stain(s) cited in this report were developed and its performance characteristic determined by the Dermatopathology Laboratory at [facility], directed by Dr. Reina Rosas. These tests need not be, and therefore are not, approved by the [place] Food and Drug Administration. The tests are used for clinical purposes. Billing Codes Specimen Charges Stain Charges 16456 1 0 3:06 PM CDT DERMATOPATHOLOGY LABORATORY Embedded Images 0 3:06 PM CDT DERMATOPATHOLOGY LABORATORY Pathology/Cytolog y TISSUE SPECIMEN FROM SKIN / Unknown 08/22/2019 08/24/2019 7:14 AM CDT us Yasir Ospina MD LAB - PATHOLOGY/CYTOLOGY ORDER CYRIL Final Result DERMATOPATHOLOGY LABORATORY [facility] - Department of Dermatology [facility] [place] [address], [facility] [phone] documented in this encounter Visit Diagnoses Not on filedocumented in this encounter Care Teams Job Developer Relationship Specialty Start Date End Date Inocente Garza MD [address] [place] [phone] PCP - General Family Medicine 06/22/11 Dixon Barth MD Orthopedic Surgery 06/22/11 documented as of this encounter
--- OUTSIDE RECORDS SUMMARY | 2024-05-22 14:40 | XMS_ITS | Encounter Summary ---
Author Organization [facility] Health Address [address] [facility] [place] [address] Care Team Providers Care Saxophone Player Name Role Phone Dixon Barth MD Unavailable [phone] Inocente Garza MD Primary Care Provider [phone] Encounter Details Date Type Department Care Team (Late st Contact Info) Description 12/04/2019 Lab Requisition [facility] [address] [facility], [place] [phone] Yasir Ospina MD [address] [place] [address] Social History Tobacco Use Types Packs/Day Years Used Date Smoking Tobacco: Never Smokeless Tobacco: Never Alcohol Use Standard Drinks/Week Comments No 0 (1 standard drink = 0.6 oz pur e alcohol) rare Comments No Sex and Gender Information Value Date Recorded Sex Assigned at Not on file 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 Gender Identity Not on file Sexual Orientation [...] Priority Date/Time Associated Diagnosis Comments DERMATOPATHOLOGY Routine 12/03/2019 12:0 0 AM CDT documented in this encounter Results * DERMATOPATHOLOGY (12/03/2019 12:00 AM CDT) Case Report Dermatopathology Report Case: [id number] Authorizing Provider: Yasir Ospina MD Collected: 12/03/2019 12:00 AM Ordering Location: [facility] DermPath Lab Received: 12/04/2019 02:27 PM Pathologist: Brit Camarena MD Specimens: A) - Skin, left supra brow B) - Skin, left jaw 0 4:06 PM CDT DERMATOPATHOLOGY LABORATORY Final Diagnosis Specimen A. SKIN, left supra brow: ACTINIC KERATOSIS (L57.0) Specimen B. 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 Path # [id number]. B: AK vs BCCA vs SCCA. Path # [id number]. 0 4:06 PM CDT DERMATOPATHOLOGY LABORATORY Gross Description Specimen A: Received is one formalin filled container labeled with the patient's name and designated left supra brow. The specimen consists of a shave biopsy measuring 0u6w1in. Jar 0. Specimen B: Received is one formalin filled container labeled with the patient's name and designated left jaw. The specimen consists of a shave biopsy measuring 8e5e6wy. Jar 0. 0 4:06 PM CDT DERMATOPATHOLOGY LABORATORY Microscopic Description Specimen A. SKIN, left supra brow: There is focal parakeratosis. The lower half of the epidermis shows disorderly maturation of keratinocytes with nuclear pleomorphism. Specimen B. SKIN, left jaw: The epidermis is acanthotic and shows full thickness disorderly maturation of keratinocytes, mitoses at different levels, and dyskeratotic cells. There is overlying parakeratosis and hyperkeratosis. 0 4:06 PM CDT DERMATOPATHOLOGY LABORATORY Disclaimer An external and internal positive and negative controls are appropriate for the histochemical, immunohistochemical and immunofluorescence stain(s) in this case (if any), except where stated explicitly. The performance characteristics of the stain(s) cited in this report were developed and its performance characteristic determined by the Dermatopathology Laboratory at [facility], directed by Dr. Reina Rosas. These tests need not be, and therefore are not, approved by the [place] Food and Drug Administration. The tests are used for clinical purposes. Billing Codes Specimen Charges Stain Charges 94015 05037 1 1 0 4:06 PM CDT DERMATOPATHOLOGY LABORATORY Embedded Images 0 4:06 PM CDT DERMATOPATHOLOGY LABORATORY Pathology/Cytology TISSUE SPECIMEN FROM SKIN / Unknown 12/03/2019 12/04/2019 2:27 PM CDT Miscellaneous samples (specimen) TISSUE SPECIMEN FROM SKIN / Unknown 12/03/2019 12/04/2019 2:27 PM CDT us Yasir Ospina MD LAB - PATHOLOGY/CYTOLOGY ORDER CYRIL Final Result DERMATOPATHOLOGY LABORATORY [facility] - Department of Dermatology [facility] [address] [place] [address], [address] [phone] documented in this encounter Visit Diagnoses Not on filedocumented in this encounter Care Teams Saxophone Player Relationship Specialty Start Date End Date Inocente Garza MD [address] [place] [phone] PCP - General Family Medicine 06/22/11 Dixon Barth MD Orthopedic Surgery 06/22/11 documented as of this encounter
--- OUTSIDE RECORDS SUMMARY | 2024-05-22 14:40 | XMS_ITS | Encounter Summary ---
Author Organization [facility] - [facility] Address [facility] [place] [address] Care Team Providers Care Bone Char Kiln Operator Name Role Phone Inocente Garza MD Primary Care Provider [phone] Danielito Navas MD Unavailable [phone] Kaur Pierre MD Unavailable [phone] Delicia Bryant [facility] Unavailable [phone] Encounter Details Date Type Department Care Team (Late st Contact Info) Description 11/08/2013 Abstract [facility] AT [address] [address] Danielito Navas MD [address] [place] [address] Social History Tobacco Use Types Packs/Day Years Used Date Smoking Tobacco: Never Alcohol Use Standard Drinks/Week Comments No 0 (1 standard drink = 0.6 oz pur e alcohol) Comments Unknown Sex and Gender Information Value Date Recorded Sex Assigned at Not on file Legal Sex Female 8:29 PM CDT Gender Identity Not on file Sexual Orientation Not on file Occupation Industry Job Start Date Job End Date Retired Not on file Not on file Not on file documented as of this encounter Plan of Treatment Not on file documented as of this encounter Visit Diagnoses Not on filedocumented in this encounter Care Teams Bone Char Kiln Operator Relationship Specialty Start Date End Date Inocente Garza MD [address] [place] [address] PCP - General FAMILY PRACTICE 10/02/15 Danielito Navas MD [address] [place] [address] [employer] CARDIOVASCULAR DISEASE 10/02/15 05/25/23 Kaur Pierre MD [address] [place] [phone] INTERVENTIONAL CARDIOLOGY 05/26/23 Delicia Bryant, [facility]- [address] [place] [address] Nurse Practitioner NURSE PRACTITIONER ADULT HEALTH 05/26/23 documented as of this encounter
--- OUTSIDE RECORDS SUMMARY | 2024-05-22 14:40 | XMS_ITS | Encounter Summary ---
Author Organization [facility] Address [address] [facility] [place] [address] Care Team Providers Care Improvement Spec Name Role Phone Dixon Barth MD Unavailable [phone] Inocente Graza MD Primary Care Provider [phone] Encounter Details Date Type Department Care Team (Late st Contact Info) Description 05/16/2014 Therapy Visit 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 Answer Date of Assessment Author No 04/25/2014 8:23 AM CDT Emerson Bernardo RN * Is person blind [...] of Assessment Author No 04/25/2014 8:23 AM Emerson Coats RN documented as of this encounter Mental Status * Does person have difficulty concentrating/remembering/making decisions? Answer Entry Date Author No 04/25/2014 8:23 AM Emerson Coats RN documented in this encounter Plan of Treatment Not on file documented as of this encounter Visit Diagnoses Not on filedocumented in this encounter Care Teams Improvement Spec Relationship Specialty Start Date End Date Inocente Garza MD [address] [place] [phone] PCP - General Family Medicine 06/22/11 Dixon Barth MD Orthopedic Surgery 06/22/11 documented as of this encounter
--- OUTSIDE RECORDS SUMMARY | 2024-05-22 14:40 | XMS_ITS | Encounter Summary ---
Author Organization [facility] Health Address [address] [place] [address] Care Team Providers Care Bioanalyst Name Role Phone Dixon Barth MD Unavailable [phone] Inocente Garza MD Primary Care Provider [phone] Encounter Details Date Type Department Care Team (Late st Contact Info) Description 06/20/2020 Lab Requisition [facility] [address] [facility] [place], [place] [phone] Yasir Ospina MD [address] [place] [address] Social History Tobacco Use Types Packs/Day Years Used Date Smoking Tobacco: Never Smokeless Tobacco: Never Alcohol Use Standard Drinks/Week Comments No 0 (1 standard drink = 0.6 oz pur e alcohol) rare Comments No Sex and Gender Information Value Date Recorded Sex Assigned at Not on file 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 DermPath Lab Received: 06/20/2020 05:54 AM Pathologist: Birt Camarena MD Specimen: Skin, right upper back medial 1 1:21 PM CDT DERMATOPATHOLOGY LABORATORY Final Diagnosis Specimen A. 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 Path # [id number]. 1 1:21 PM CDT DERMATOPATHOLOGY LABORATORY Gross Description Specimen A: Received is one formalin filled container labeled with the patient's name and designated right upper back medial. The specimen consists of a non-oriented ellipse of skin measuring [id number]. The epidermal surface is unremarkable. The margin is inked green. The 12 o'clock and 6 o'clock tips are submitted in cassette 1. The remainder of the ellipse is serially sectioned and submitted in cassettes 2-8. Jar 0. 1 1:21 PM CDT DERMATOPATHOLOGY LABORATORY Microscopic Description Specimen A. SKIN, right upper back medial: The epidermis shows parakeratosis, full thickness disorderly maturation of keratinocytes, mitoses at different levels, and dyskeratotic cells. This lesion is not present at the margin of the specimen. There are fibroblasts and collagen bundles oriented parallel to the skin surface with elongated blood vessels, some of which are oriented perpendicular to the skin surface. 1 1:21 PM CDT DERMATOPATHOLOGY LABORATORY Disclaimer An external and internal positive and negative controls are appropriate for the histochemical, immunohistochemical and immunofluorescence stain(s) in this case (if any), except where stated explicitly. The performance characteristics of the stain(s) cited in this report were developed and its performance characteristic determined by the Dermatopathology Laboratory at [facility], directed by Dr. Reina Rosas. These tests need not be, and therefore are not, approved by the [place] Food and Drug Administration. The tests are used for clinical purposes. Billing Codes Specimen Charges Stain Charges 74724 1 1 1:21 PM CDT DERMATOPATHOLOGY LABORATORY Embedded Images 1 1:21 PM CDT DERMATOPATHOLOGY LABORATORY Pathology/Cytolo gy TISSUE SPECIMEN FROM SKIN / Unknown 06/18/2020 3:33 AM CDT 06/20/2020 5:54 AM CDT us Yasir Ospina MD LAB - PATHOLOGY/CYTOLOGY ORDER CYRIL Final Result DERMATOPATHOLOGY LABORATORY [facility] - Department of Dermatology [facility] Medicine [address] [place] [address], [address] [phone] documented in this encounter Visit Diagnoses Not on filedocumented in this encounter Care Teams Bioanalyst Relationship Specialty Start Date End Date Inocente Garza MD [address] [place] [phone] PCP - General Family Medicine 06/22/11 Dixon Barth MD Orthopedic Surgery 06/22/11 documented as of this encounter
--- OUTSIDE RECORDS SUMMARY | 2024-05-22 14:40 | XMS_ITS | Encounter Summary ---
Author Organization [facility] Address [facility] [place] [address] Care Team Providers Care Felt Puller Name Role Phone Inocente Garza MD Primary Care Provider [phone] Danielito Navas MD Unavailable [phone] Kaur Pierre MD Unavailable [phone] Delicia Bryant [facility] Unavailable [phone] Encounter Details Date Type Department Care Team (Late st Contact Info) Description 06/21/2017 Abstract [facility] AT [facility] [address] [place] [address] Danielito Navas MD [address] [place] [address] Social History Tobacco Use Types [...] Procedure Name Priority Date/Time Associated Diagnosis Comments BASIC METABOLIC PANEL Routine 06/17/2017 documented in this encounter Results * BASIC METABOLIC PANEL (06/17/2017) SODIUM S/P/B 148 POTASSIUM S/P/B 3.7 CO2 30 CHLORIDE S/P/B 107 GLUCOSE 113 mg/dL CALCIUM S/P/B 9.9 BUN 24 CREATININE S/P/B 0.94 0.5 - 1.0 MAGNESIUM 1.9 06/17/2017 us Doc [facility] LABORATORY Final Result documented in this encounter Visit Diagnoses Not on filedocumented in this encounter Care Teams Felt Puller Relationship Specialty Start Date End Date Inocente Garza MD [address] [place] [address] PCP - General FAMILY PRACTICE 10/02/15 Danielito Navas MD [address] [place] [phone] [place] [employer] CARDIOVASCULAR DISEASE 10/02/15 05/25/23 Kaur Pierre MD [address] [place] [phone] INTERVENTIONAL CARDIOLOGY 05/26/23 Delicia Bryant, [facility]- [address] [place] [address] Nurse Practitioner NURSE PRACTITIONER ADULT HEALTH 05/26/23 documented as of this encounter
--- OUTSIDE RECORDS SUMMARY | 2024-05-22 14:40 | XMS_ITS | Encounter Summary ---
Author Organization [facility] Health Address [address] [facility] [place] [address] Care Team Providers Care Professional Nurse Name Role Phone Dixon Barth MD Unavailable [phone] Inocente Garza MD Primary Care Provider [phone] Encounter Details Date Type Department Care Team (Late st Contact Info) Description 05/10/2020 Lab Requisition [facility] [address] [facility], [place] [phone] Yasir Ospina MD [address] [place] [address] Social History Tobacco Use Types Packs/Day Years Used Date Smoking Tobacco: Never Smokeless Tobacco: Never Alcohol Use Standard Drinks/Week Comments No 0 (1 standard drink = 0.6 oz pur e alcohol) rare Comments No Sex and Gender Information Value Date Recorded Sex Assigned at Not on file 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 Gender Identity Not on file Sexual Orientation [...] Priority Date/Time Associated Diagnosis Comments DERMATOPATHOLOGY Routine 05/08/2020 3:33 AM CDT documented in this encounter Results * DERMATOPATHOLOGY (05/08/2020 3:33 AM CDT) Case Report Dermatopathology Report Case: [id number] Authorizing Provider: Yasir Ospina MD Collected: 05/08/2020 03:33 AM Ordering Location: [facility] [place] DermPath Lab Received: 05/10/2020 01:14 PM Pathologist: Sunny Rosas MD Specimens: A) - Skin, right upper back - medial B) - Skin, right upper back - lateral 1 6:48 PM CDT DERMATOPATHOLOGY LABORATORY Final Diagnosis Specimen A. 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 Path# [id number]. B: ISK vs BCCA vs SCCA. Path# [id number] 6:48 PM CDT DERMATOPATHOLOGY LABORATORY Gross Description Specimen A: Received is one formalin filled container labeled with the patient's name and designated right upper back - medial. The specimen consists of a shave (2 pieces) biopsy measuring 5a3i6ka, 3f2i8dy. Jar 0. Specimen B: Received is one formalin filled container labeled with the patient's name and designated right upper back - lateral. The specimen consists of a shave biopsy measuring 6z2r2fm. Jar 0. 1 6:48 PM CDT DERMATOPATHOLOGY LABORATORY Microscopic Description Specimen A. SKIN, right upper back - medial: The epidermis shows parakeratosis, full thickness disorderly maturation of keratinocytes, mitoses at different levels, and dyskeratotic cells. Specimen B. SKIN, right upper back - lateral: The epidermis shows parakeratosis, full thickness disorderly maturation of keratinocytes, mitoses at different levels, and dyskeratotic cells. 1 6:48 PM CDT DERMATOPATHOLOGY LABORATORY Disclaimer An external and internal positive and negative controls are appropriate for the histochemical, immunohistochemical and immunofluorescence stain(s) in this case (if any), except where stated explicitly. The performance characteristics of the stain(s) cited in this report were developed and its performance characteristic determined by the Dermatopathology Laboratory at [facility], directed by Dr. Reina Rosas. These tests need not be, and therefore are not, approved by the [place] Food and Drug Administration. The tests are used for clinical purposes. Billing Codes Specimen Charges Stain Charges 57620 71151 1 1 1 6:48 PM CDT DERMATOPATHOLOGY LABORATORY Embedded Images 1 6:48 PM CDT DERMATOPATHOLOGY LABORATORY Pathology/Cytology TISSUE SPECIMEN FROM SKIN / Unknown 05/08/2020 3:33 AM CDT 05/10/2020 1:14 PM CDT Miscellaneous samples (specimen) TISSUE SPECIMEN FROM SKIN / Unknown 05/08/2020 3:33 AM CDT 05/10/2020 1:14 PM CDT us Yasir Ospina MD LAB - PATHOLOGY/CYTOLOGY ORDER CYRIL Final Result DERMATOPATHOLOGY LABORATORY [facility] - Department of Dermatology [address], [address] [phone] documented in this encounter Visit Diagnoses Not on filedocumented in this encounter Care Teams Professional Nurse Relationship Specialty Start Date End Date Kayla, Inocente C, MD [address] [place] [address] PCP - General Family Medicine 06/22/11 Dixon Barth MD Orthopedic Surgery 06/22/11 documented as of this encounter
--- OUTSIDE RECORDS SUMMARY | 2024-05-22 14:40 | XMS_ITS | Clinical Summary ---
Author Organization [facility] Address [facility] [place] [address] Care Team Providers Care Regional Operations Director Name Role Phone Dixon Barth MD Unavailable Inocente Garza MD Primary Care Provider [phone] Source Comments [facility],non-owned Affiliates and Associated Physician Practices is amultiple site organization consisting of ambulatory clinics and hospital sitesin [place], [place], [place] and [place]. This disclosure is being madepursuant to the Care Everywhere program and may not contain all information available regarding this patient. Last updated 17.[facility] Allergies No known active allergies Medications * Be aware that medications may not be up to date on this document. Alwaysverify current medications with the patient. escitalopram (LEXAPRO) 20 MG tablet Take 20 mg by mouth at bedtime. Active lisinopril-hydro chlorothiazide (PRINZIDE; ZESTORETIC) 20-12.5 MG tablet Take 1 Tab by mouth 2 times daily. Take am of OR 05/21/2010 Active atorvastatin (LIPITOR) 40 MG tablet Take 40 mg by mouth at bedtime. Active desloratadine (CLARINEX) 5 MG tablet Take 5 mg by mouth once daily. Active montelukast (SINGULAIR) 10 MG tablet Take 10 mg by mouth at bedtime. Active Cholecalciferol (VITAMIN D) 1000 UNITS capsule Take 2,000 Units by mouth at bedtime. Active metoprolol succinate XL 24hr (TOPROL XL) 100 MG tablet Take 0.5 Tabs by mouth once daily. Take am of OR 04/26/2014 Active hydrocodone-acet aminophen (NORCO) 5-325 MG tablet Take 1-2 Tabs by mouth every 6 hours as needed for Pain. 75 Tab 0 05/17/2014 Active meloxicam (MOBIC) 15 MG tabletIndication s:Presence of right artificial knee joint Take 1 Tab by mouth once daily 30 Tab 5 04/25/2015 Active Active Problems Problem Noted Date Diagnosed Date Presence of right artificial knee joint 04/24/19 16 Wheezing 04/27/2014 Osteoarthrosis involving lower leg 03/19/2014 Overview (05/03/2015): 2015 IMO Updt Knee joint replacement by other means 06/22/2011 Immunizations Immunization Administration Dates Next Due PNEUMOCOCCAL PPSV23 11/11/2007 Social History Tobacco Use Types Packs/Day Years Used Date Smoking Tobacco: Never Smokeless Tobacco: Never Alcohol Use Standard Drinks/Week Comments No 0 (1 standard drink = 0.6 oz pur e alcohol) rare Comments No Sex and Gender Information Value Date Recorded Sex Assigned at Not on file 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 Gender Identity Not on file Sexual Orientation Not on file Last Filed Vital Signs Vital Sign Reading Time Taken Comments Blood Pressure 128/51 04/28/2014 8:51 AM CDT Pulse 68 04/28/2014 8:51 AM CDT Temperature 36.5 C (97.7 F) 04/28/2014 8:51 AM CDT Respiratory Rate 16 04/28/2014 8:51 AM CDT Oxygen Saturation 94% 04/28/2014 8:51 AM CDT Inhaled Oxygen Concentration 21% 04/27/2014 7 :21 PM CDT Weight 123.1 kg (271 lb 6.4 oz) 04/25/2014 8:25 AM CDT Height 165.1 cm (5' 5 ) 04/25/2014 8:25 AM CDT Body Mass Index 45.16 04/25/2014 8:25 AM CDT Plan of Treatment Health Maintenance Due Date Last Done Comments BONE DENSITY TESTING 1940 MEDICARE AWV 12 MONTHS 1940 DTAP/TDAP/TD VACCINES (1 - Tdap) 09/24/1959 ZOSTER VACCINE (1 of 2) 1990 PNEUMOCOCCAL VACCINE 50+ (2 of 2 - PCV) 11/10/2008 11/11/2007 Respiratory Syncytial Virus (RSV) Vaccine Pt: or over 60 yrs (1 - 1-dose 75+ series) 09/24/2015 COVID-19 VACCINE ( - 2023-2 5 season) 2023 DEPRESSION SCREENING 02/08/2024 INFLUENZA VACCINE (Season Ended) 2024 HEPATITIS B VACCINE Aged Out No longe r eligible based on patient's age to complete this topic HIB VACCINE Aged Out No longer eligi ble based on patient's age to complete this topic HPV VACCINE Aged Out No longer eligi ble based on patient's age to complete this topic MENINGOCOCCAL (Group B) VACC INE SHARED DECISION-MAKING Aged Out No longer eligibl e based on patient's age to complete this topic MENINGOCOCCAL GROUPS A/C/Y/W VACCINE Aged Out No longer eligible b ased on patient's age to complete this topic Medical Devices Implanted Type Area Manager Hair Device Identifier Shelf Expiration Date Model / Serial / Lot [place] Bone [place] Hv Implanted:Qty: 1 on 04/25/2014 by Dixon Barth MD at [facility] Right: [employer] 01/07/2016 [id number] / / [id number] Ins Kn Vangurd Fem Cocr R-Intlok 70mm Implanted:Qty: 1 on 04/25/2014 by Dixon Barth MD at [facility] Right: [employer] 12/07/2023 [id number] / / [id number] Tibial I Beam Fix Bar 75mm Implanted:Qty: 1 on 04/25/2014 by Dixon Barth MD at [facility] Right: [employer] 03/08/2024 [id number] / / [id number] Butn Pat Arcom Wire Polyeth Sm 31 X 8mm Implanted:Qty: 1 on 04/25/2014 by Dixon Barth MD at [facility] Right: [employer] 02/05/2019 [id number] / / [id number] Vangrd Ant Stblzd Brg 14mm X 75mm Implanted:Qty: 1 on 04/25/2014 by Dioxn Barth MD at [facility] Right: [employer] 10/06/2017 [id number] / / [id number] [place] [address] MEDICAID - OUT OF STATE Advance Directives Documents on File Type Date Recorded Patient Customer Engineer Expl anation Adv Directive/Living Will/POA 04/29/2014 10:18 PM Adv Directive/Living Will/POA 05/15/2010 8:19 AM * Full Code (Latest Code Status on File) Date Activated Date Inactivated Comments 04/25/2014 4:18 PM 04/28/2014 12:43 PM * Full Code Date Activated Date Inactivated Comments 05/11/2010 2:04 PM 05/15/2010 2:38 AM Care Teams Regional Operations Director Relationship Specialty Start Date End Date Inocente Garza MD [address] [place] [phone] PCP - General Family Medicine 06/22/11 Dixon Barth MD Orthopedic Surgery 06/22/11
--- OUTSIDE RECORDS SUMMARY | 2024-05-22 14:40 | XMS_ITS | Clinical Summary ---
Author Organization [facility] Address [address] [place] [address] Care Team Providers Care Manager Product Design Name Role Phone Inocente Garza MD Primary Care Provider [phone] Kaur Pierre MD Unavailable [phone] Delicia Bryant [facility] Unavailable + Allergies No known active allergies Medications aspirin 81 MG chewable tablet Chew 1 tablet (81 mg total) by mouth daily. 3 Active atorvastatin 40 MG tablet atorvastatin tablet 40 mg; take 1 tablet by mouth at bedtime; 30; ; -Feb-2013; Active; Call PCP for refills 4 Active desloratadine (CLARINEX) 5 MG Tab tablet Take 1 tablet (5 mg total) by mouth daily. 4 Active escitalopram (LEXAPRO) 20 MG tablet Take 1 tablet (20 mg total) by mouth daily. 3 Active docusate sodium (COLACE) 100 MG capsule Take 1 tablet by mouth daily as needed. 4 Active MYRBETRIQ 25 MG 24 hr tablet Take 1 tablet (25 mg total) by mouth daily. 12 6 Active montelukast 10 MG tablet Take 1 tablet (10 mg total) by mouth. Active lisinopril 40 MG tablet Take 1 tablet (40 mg total) by mouth daily. 8 Active metoprolol succinate 100 MG 24 hr tablet Take 1 tablet (100 mg total) by mouth daily. 90 tablet 3 8 Active vitamin D3, cholecalciferol , 125 mcg capsule Take 1 capsule (125 mcg total) by mouth daily. Active Multiple Vitamins-Minera ls (OCUVITE EYE HEALTH FORMULA) Cap Take 1 capsule by mouth daily. Active traZODone (DESYREL) 50 MG tablet 3 Active hydroCHLOROthia zide (HYDRODIURIL) 25 MG tablet take one tablet by mouth every morning 90 tablet 3 3 Active doxazosin (CARDURA) 4 MG tablet Take 2 tablets (8 mg total) by mouth 2 (two) times daily. 360 tablet 4 Active Active Problems Problem Noted Date Diagnosed Date Hypertension 11/14/2015 LBBB (left bundle branch block) 11/14/2015 Mixed hyperlipidemia 11/14/2015 Hormone replacement therapy Depression Arthritis Family History Medical History Relation Comments CABG Father Heart Mother LATELY DEVELOPED HEART PROBLEM Hyperlipidemia Sister Hypertension Sister Relation Status Comments Father (Age 96) Mother Alive Sister Social History Tobacco Use Types Packs/Day Years [...] file Not on file Not on file Last Filed Vital Signs Vital Sign Reading Time Taken Comments Blood Pressure 144/68 09/27/2022 3:00 PM CDT Pulse 60 09/27/2022 3:00 PM CDT Temperature - - Respiratory Rate 22 09/27/2022 3:00 PM CDT Oxygen Saturation 97% 09/27/2022 3:00 PM CDT Inhaled Oxygen Concentration - - Weight 124.5 kg (274 lb 6.4 oz) 09/27/2022 3:00 PM CDT Height 165.1 cm (5' 5 ) 09/27/2022 3:00 PM CDT Body Mass Index 45.66 09/27/2022 3:00 PM CDT Plan of Treatment Health Maintenance Due Date Last Done Comments DTaP, Tdap and Td Vaccines ( 1 - Tdap) 09/24/1959 Annual Medicare Wellness Visit 2005 Dexa Scan (General) 2005 Zoster Vaccines (2 of 3) 05/11/2012 03/16/2012 RSV Immunization or 60+ Years (1 - 1-dose 75+ series) 09/24/2015 COVID-19 Vaccine (4 - 4-2 5 season) 2023 11/13/2020, 04/23/2020, 04/02/2020 Pneumococcal Vaccine: 50+ Years Completed 11/21/2014, 03/16/2012, 11/11/2007 Meningococcal B Vaccine Aged Out No l onger eligible based on patient's age to complete this topic Meningococcal Vaccine Aged Out No souleymane arya eligible based on patient's age to complete this topic RSV Immunizations Under 20 Months Aged Out No longer eligible b ased on patient's age to complete this topic Insurance [employer] MEDICARE MEDICARE MEDICAID [place] [id number] Care Teams Manager Product Design Relationship Specialty Start Date End Date Inocente Garza MD [address] [place] [address] PCP - General FAMILY PRACTICE 10/02/15 Kaur Pierre MD [address] [place] [address] INTERVENTIONAL CARDIOLOGY 05/26/23 Delicia Bryant ANP- [address] [place] [phone] Nurse Practitioner NURSE PRACTITIONER ADULT HEALTH 05/26/23
--- OUTSIDE RECORDS SUMMARY | 2024-05-22 14:40 | XMS_ITS | CONTINUITY OF CARE DOCUMENT ---
Author Name lopez marroquin Address Unknown Organization [facility] Address [address] [place] [address] [address] [place] [address] Phone [phone] Care Team Providers Care Salt Washer Name Role Phone lopez marroquin Unavailable Unavailable INSURANCE PROVIDERS Payer name Policy type / Coverage type [employer] party ID [employer] [place] [id number] [place] [id number]
== END 2024-05-22 13:39 | disposition home or self-care (01) ==
PROVIDERS: PCP Family Medicine; Visit Provider Internal Medicine Cardiovascular Disease
DX: R06.09 Other forms of dyspnea (principal); I27.20 Pulmonary hypertension, unspecified; I35.0 Nonrheumatic aortic (valve) stenosis; I50.30 Unspecified diastolic (congestive) heart failure
CPT/HCPCS: 93306; C8929